=== PATIENT | male | born 1950 | race Caucasian/White ===

== ENCOUNTER 2021-02-04 12:24 | Emergency (ER) | payer MEDICARE, MEDICAID, SELFPAY ==
--- NOTE | ~2021-02-04 | CT_ITS ---
EXAMINATION: CT HEAD WITHOUT CONTRAST CLINICAL INFORMATION: Change in behavior COMPARISON: None. TECHNIQUE: Contiguous axial imaging was performed from the skull base to vertex without intravenous administration of contrast. Coronal and sagittal reformatted images are performed at the CT scanner. [This CT examination was performed using dose optimization techniques as appropriate, variously including the following: *Automated exposure control *Adjustment of mA and/or kV according to patient size (this includes techniques or standardized protocols for targeted exams where dose is matched to indication/reason for exam; i.e. extremities or head) *Use of iterative reconstruction technique] DLP: 716 mGy-cm. FINDINGS: There is no evidence of acute intracranial hemorrhage or territorial infarction. No abnormal mass-effect or midline shift is seen. [place] to white matter differentiation is well preserved. No extra-axial fluid collections are identified. The ventricles are normal in size. There is no abnormal attenuation within the brain parenchyma. There is no osseous abnormality. The mastoid air cells and visualized portions of the paranasal sinuses are well-aerated. CT/CT head/brain wo con IMPRESSION: No acute intracranial pathology.
--- NOTE | ~2021-02-04 | XR_ITS ---
EXAMINATION: XR CHEST CLINICAL INFORMATION: Feels as if he was poisoned COMPARISON: None TECHNIQUE: 2 views of the chest were obtained. FINDINGS: No significant abnormality is noted involving the heart, lungs, mediastinum, bony thorax or soft tissues. XR/XR chest 2V IMPRESSION: Unremarkable examination.
[2021-02-04 12:55] VITALS: BP 101/63; PULSE 70; RESP 18; TEMP 36.7; O2SAT 98; BMI 22.6
[2021-02-04 16:28] VITALS: BP 117/84; PULSE 63; RESP 18; TEMP 36.6; O2SAT 99
--- NOTE | 2021-02-04 16:33 | ED_ITS ---
HPI - Psych General Chief Complaint: Psychiatric Symptoms Stated Complaint: CRISIS Time Seen by Provider: 02/04/21 15:01 Source: patient Mode of arrival: ambulatory Limitations: language barrier (Korean-speaking) History of Present Illness HPI Narrative: 70-year-old male with a past medical history of hypertension, arthritis and asthma presenting to the ED with complaints of increased anxiety and paranoia since January 29, 2021 after attending a birthday republican at his ex son-in-law's house. He reports that he was invited to his ex son-in-law's house for a birthday republican and he accepted the invitation when he arrived there he was eating the food that he was given that he believes everyone else was eating then finally they gave him something to drink and a cup of coffee and shortly after he started feeling weird he said he felt a sensation in his body that he has never felt before. Therefore at that time he decided that he was going to go home. Then his ex son-in-law reported that he would take him home although he did not feel comfortable with anyone driving his car therefore they followed him home and he found this suspicious. He reports that since then he has been having a weird sensation in his body that he cannot explain although he believes he was poisoned with possible rat poisoning. He reports that his ex son-in-law called them again today to go by a car at a dealership and he explained to him that he wanted the patient to go in his own car to his house although the patient did not feel comfortable and he found this suspicious as well therefore he went to his primary care provider. His primary care provider's office he explained to them about his anxiety/paranoia possibly being poisoned therefore he was given medication to relax himself and was sent here for further evaluati on treatment. Patient denies any SI/HI/auditory or visual hallucinations or thoughts of self injury. Denies any drug or alcohol usage. Denies any recent travel or sick contacts. Denies being on any blood thinners. Denies any additional complaints or concerns at this time. complaint: anxiety Onset (ago): day(s) Duration: constant and getting worse History of same: No Relieving factors: none Exacerbating factors: other (When his ex son-in-law calls him) Associated symptoms: denies other symptoms Treatments prior to arrival: other (Was given a p.o. medication at his primary care prior to arrival unsure the name) Related Data Allergies Allergy/AdvReac Type Severity Reaction Status Date / Time No Known Allergies Allergy Unverified 06/26/20 19:05 [No Known Allergies*] Review of Systems Review of Systems: Constitutional : No Fever, No Chills ENT/Mouth : No Ear Pain, No Nasal Congestion, No sore throat Eyes: No Eye Pain, No Swelling, No Redness Cardiovascular : No Chest Pain, No SOB Respiratory : No Cough, No Sputum, No Dyspnea Gastrointestinal : No ingestions, No Nausea, No Vomiting, No Diarrhea, No Hematochezia, No Melena Genitourinary : No Dysuria, No Urinary Frequency, No Hematuria Musculoskeletal : No Myalgias Skin : No Skin Lesions, No rash Neuro : No Weakness, No Numbness, No Paresthesias, No Dizziness, No Headache Psych : + Anxiety/paranoia, No Depression, No SI, No No thoughts of self injury, No HI, No AVH, Heme/Lymph: No Lymphadenopathy Endocrine : No Polyuria, No Polydipsia Yes all other systems are reviewed and are negative [facility] Past Medical History Attestation statement: The following information was validated with the patient. Medical History Arthritis Asthma Hypertension Surgical History No significant past surgical history Social History Social History Advance Directives: Yes Advance Directives Information Provided: Yes Advance Directives on File: No Physical Exam Vital Signs: Vital Signs: Last Vital Signs Temp 97.8 F 02/04/21 16:28 Pulse 63 02/04/21 16:28 Resp 18 02/04/21 16:28 BP 117/84 02/04/21 16:28 Pulse Ox 99 02/04/21 16:28 Body Mass Index 22.6 vital signs have been reviewed as normal and appeared to be correct. Blood pressure normal. Heart rate normal. Respiration rate normal. Temperature normal. Oxygen saturation normal. Appearance: Alert. Oriented X3. No acute distress. Head: Normal external exam. Normocephalic. Atraumatic. No Egan signs noted. No raccoon eyes noted Eyes: PERRLA. EOMI. Conjunctiva and sclera normal. Eyelids normal. ENT: EAC normal. TM's Normal. Pharynx normal. Uvula midline. Moist mucous membranes. No trismus noted. No drooling noted. No muffled voice noted. Neck: Normal inspection. Neck supple. FROM. No adenopathy. Thyroid Normal. No meningeal signs. No neck mass noted. CVS: Normal heart rate and rhythm. Heart sound normal. No murmurs noted. Pulses normal throughout. Respiratory: No respiratory distress. Painless inspiration. Breath sounds normal. No wheezes/rales/rhonchi noted. Chest nontender. No accessory muscle usage noted or decreased air movement noted. Abdomen: Soft and nontender. Bowel sounds normal in all 4 quadrants. No distention noted. No organomegaly noted. No visible injury noted. Back: No CVA tenderness. Full range of motion noted. Skin: Skin warm and dry. Normal skin color. Normal skin turgor. No rashes/lesions/lacerations noted. Extremities: No lower extremity edema. Extremities exhibit normal range of motion. Extremities nontender. Neuro: Oriented X 3. No motor deficit. No sensory deficit. Reflexes normal. Psych: Appearance grossly normal, well-kept, mental status normal, speech and movement normal, speech clear, patient appears very sad and anxious. Is cooperative. Normal thought process. Normal thought content. Normal good insight. Judgment good. Course Course Course Narrative: 17pm - labs pending at this time. - chest x-ray within normal limits no acute processes are noted. - sign out to TARAS Tran pending labs, EKG, CT scan of brain and N/care Team consult. MDM - Psych MDM Narrative Medical decision making narrative: 70-year-old male with a past medical history of hypertension, asthma and arthritis does not have a psychiatric history presenting to the ED with complaints of increased anxiety/paranoia where he believes that his ex son-in-law is trying to poison him. Denies any SI/HI/auditory visualizations or thoughts of self injury. Denies any drug or alcohol usage. Reports he is not on any blood thinners. Denies any recent trauma. - on exam patient is alert and oriented x3. Not in any acute distress. No focal neuro deficits are noted. Lungs clear to auscultation. CV RRR. Abdomen is soft and nontender. Normal steady gait. No self-injury or track donald noted. - Plan: Will obtain labs, chest x-ray, EKG, CT scan of brain then if all within normal limits patient will need to be evaluated by [facility]/care team. Patient understands agrees with this plan. Medical Records Attestation: I reviewed the patient's medical records. Lab Data Attestation: I reviewed the patient's lab results. Imaging Data Chest x-ray: Attestation: I personally reviewed and interpreted this imaging study as follows: Radiologist's impression: FINDINGS: No significant abnormality is noted involving the heart, lungs, mediastinum, bony thorax or soft tissues. XR/XR chest 2V IMPRESSION: Unremarkable examination. Discharge Plan Discharge Clinical Impression: Acute anxiety, Paranoid
[2021-02-04 16:55] LABS: MANUAL DIFF FLAG NO
[2021-02-04 16:56] LABS: Basophils Percent Auto 0.5 % (0-2); Eosinophils Absolute Auto 0.2 X10*3/uL (0.0-0.4); Eosinophils Percent Auto 3.4 % (0-4); Hemoglobin 14.1 g/dl (14.0-18.0); Lymphocytes Absolute Auto 2.6 X10*3/uL (1.2-4.9); Lymphocytes Percent Auto 40.6 % (20-40); Mean Corpuscular HGB Conc 33.6 g/dl (31.0-36.0); Mean Corpuscular Hemoglobin 30.2 pg (27.0-33.0); Mean Corpuscular Volume 89.9 fL (80-98); Mean Platelet Volume 9.5 fL (9.4-12.4); Monocytes Absolute Auto 0.6 X10*3/uL (0.1-1.2); Monocytes Percent Auto 9.5 % (2-11); Platelet Count 272 X10*3/uL (160-400); Red Blood Count 4.67 X10*6/uL (4.60-5.80); Red Cell Distribution Width 13.8 % (11.0-16.0); White Blood Count 6.5 X10*3/uL (4.8-10.8)
--- NOTE | 2021-02-04 16:57 | ECG_ITS ---
Test Reason : HYPERTENSION Blood Pressure : / mmHG Vent. Rate : 062 BPM Atrial Rate : 062 BPM P-R Int : 130 ms QRS Dur : 100 ms QT Int : 416 ms P-R-T Axes : 002 061 039 degrees QTc Int : 422 ms Normal sinus rhythm Normal ECG When compared to the previous EKG of No significant changes seen Referred By: Alice Wisdom Electronically Signed By:DANIEL GODOY MD
[2021-02-04 17:03] LABS: INTERNATIONAL NORM RATIO 1.1 (0.9-1.1); Prothrombin Time 12.7 SEC (10.8-13.0)
[2021-02-04 17:06] LABS: Glucose Urine UA NEG (NEG); Leukocyte Esterase Urine NEG (NEG); Nitrite Urine NEG (NEG); PH 6.5 (5.0-8.0); Specific Gravity - Urine 1.015 (1.005-1.025); Urine Blood NEG (NEG); Urine Ketones NEG (NEG); Urine Protein NEG (NEG-TRACE)
--- NOTE | 2021-02-04 17:14 | PC.NURSE ---
labs drawn, urine obtained
[2021-02-04 17:16] LABS: Appearance Urine CLEAR; Color Urine YELLOW; Ethanol < 10 mg/dL
[2021-02-04 17:20] LABS: Amphetamine Screen Urine Not Detected (Not Detect); Barbiturates, Urine Not Detected (Not Detect); Benzodiazepines Screen Urine Not Detected (Not Detect); Cannabinoid Screen Urine Not Detected (Not Detect); Cocaine Screen Urine Not Detected (Not Detect); Opiate Screen Urine Not Detected (Not Detect); Phencyclidine Screen Urine Not Detected (Not Detect)
[2021-02-04 17:23] LABS: Acetaminophen LAB < 1 mcg/mL (<30); Alanine Aminotransferase 13 U/L (0-40); Albumin Level 4.3 g/dL (3.5-5.0); Alkaline Phosphatase 80 U/L (39-117); Anion Gap 13 (12-20); Aspartate Amino Transferase 16 U/L (5-37); Bilirubin Direct 0.2 mg/dL (0.0-0.5); Bilirubin Total 0.7 mg/dL (0.0-1.0); Blood Urea Nitrogen 14 mg/dL (9-16); Carbon Dioxide 25 mmol/L (22-29); Chloride 107 mmol/L (96-108); Creatinine Clr Calc Pharmacy 63.2; Estimated Glomerular Filt Rate > 60; Glucose Random 90 mg/dL (60-115); Lipase 32 U/L (8-78); Magnesium 2.5 mg/dL (1.6-2.6); Potassium 3.6 mmol/L (3.3-5.1); Salicylate < 5.0 mg/dL (15-30); Sodium 141 mmol/L (135-145); Total Protein 7.5 g/dL (6.5-8.0)
[2021-02-04 17:50] LABS: Troponin-I High Sensitivity 6.1 ng/L (<3.5-35.0)
--- NOTE | 2021-02-04 18:25 | PC.NURSE ---
Report recieved. PT ambulated to pod with steady gait, denies complaints, pt cooperative with change manager, waiting to be seen by [facility].
[2021-02-04 19:51] LABS: COVID-19 Test Negative (Negative)
--- NOTE | 2021-02-04 20:26 | PC.NURSE ---
[facility] faxed/called/spoke with Peggycy/confirmed receipt of referral, No ETA
[2021-02-04 20:48] VITALS: BP 112/74; PULSE 76; RESP 18; TEMP 36.5; O2SAT 97
[2021-02-05 01:07] VITALS: BP 125/77; PULSE 70; RESP 17; TEMP 36.8; O2SAT 99
--- NOTE | 2021-02-05 01:36 | PC.NURSE ---
[facility] at bedside. patient seems engaged.
== END 2021-02-05 02:19 | disposition home or self-care (01) ==
PROVIDERS: Nurse Practitioner Family; Physician Assistant Medical; Emergency Provider Emergency Medicine Emergency Medical Services
DX: F22 Delusional disorders (principal); F33.1 Major depressive disorder, recurrent, moderate; F41.1 Generalized anxiety disorder; F43.0 Acute stress reaction; I10 Essential (primary) hypertension; Z20.822 Contact with and (suspected) exposure to COVID-19; Z79.899 Other long term (current) drug therapy
CPT/HCPCS: 36415; 70450; 71046; 80053; 80076; 80143; 80179; 80307; 80320; 81003; 82248; 83690; 83735; 84484; 85025; 85610; 87635; 93005; 99285

== ENCOUNTER → 2022-10-08 14:06 | Outpatient (BNVA) | payer MEDICARE, MEDICAID, SELFPAY | PROVIDERS: PCP Internal Medicine; Visit Provider Urology | DX: Z09 Encounter for follow-up examination after completed treatment for conditions other than malignant neoplasm (principal); N40.0 Benign prostatic hyperplasia without lower urinary tract symptoms | CPT/HCPCS: 99202 ==

== ENCOUNTER 2025-07-04 13:44 | Outpatient (REF) | payer MEDICARE, MEDICAID, SELFPAY ==
--- OUTSIDE RECORDS SUMMARY | 2025-07-04 13:00 | XMS_ITS | Encounter Summary ---
Author Organization [employer] Address [address] [place] [address] Care Team Providers Care Center Human Resources Manager Name Role Phone Colin Ellsworth MD Primary Care Prov ider Encounter Details Date Type Department Care Team ([facility] st Contact Info) Description 07/04/2025 1:00 PM EDT Office Visit [facility] [address], [place] [phone] Colin Ellsworth MD [address], [place] [phone] Primary hypertension (Primary Dx); Mixed hyperlipidemia; Screening for colon cancer Social History Tobacco Use Types Packs/Day Years Used Date Smoking Tobacco: Never Passive Smoke Exposure: Never Smokeless Tobacco: Never Alcohol Use Standard Drinks/Week Comments Never 0 (1 standard drink = 0.6 oz pur e alcohol) Depression Answer Date Recorded Patient Health Questionnaire-9 Score 17 05/14/2024 Patient Health Questionnaire-9 Score 17 05/14/2024 Last PHQ-9: Questionnaire Data Not on file 0 05/14/2024 Housing Stability Answer Date Recorded What is your housing situation today? I have pam jaimes 05/14/[address] you li ve. Do you have problems with any of the following? None of the above 05/14/2024 Food Insecurity Answer Date Recorded Within the past 12 months, y ou worried that your food would run out before you got money to buy more: Never True 05/14/2024 Within the past 12 months,th e food you bought just didn't last and you didn't have enough money to get more: Never True 02/2024 Transportation Answer Date Recorded In the past 12 months, has l ack of transportation kept you from medical appts, meetings, work or from getting things needed for daily living? No 05/14/2024 Utilities Answer Date Recorded In the past 12 months, has t he electric, gas, oil or water company threatened to shut off services in your home? No 05/14/2024 Depression Answer Date Recorded Patient Health Questionnaire-2 Score 6 05/14/2024 Internet Access Answer Date Recorded Internet Access Q1 No 06/11/2024 Internet Access Q2 I do not want or need it 11/2023 Sex and Gender Information Value Date Recorded Sex Assigned at Male 08/09/2022 10:29 AM EDT Legal Sex Male 10:29 AM EDT Gender Identity Male 08/09/2022 10:29 AM EDT Sexual Orientation Straight 08/09/2022 10 :29 AM EDT documented as of this encounter Last Filed Vital Signs Vital Sign Reading Time Taken Comments Blood Pressure 134/90 07/04/2025 1:09 PM EDT Pulse 68 07/04/2025 1:09 PM EDT Temperature 37.1 C (98.7 F) 07/04/2025 1:09 PM EDT Respiratory Rate 16 07/04/2025 1:09 PM EDT Oxygen Saturation - - Inhaled Oxygen Concentration - - Weight 70.6 kg (155 lb 9.6 oz) 07/04/2025 1:09 P M EDT Height 180.3 cm (5' 11 ) 07/04/2025 1:09 PM EDT Body Mass Index 21.7 07/04/2025 1:09 PM EDT documented in this encounter Progress Notes * Colin Campos MD - 07/04/2025 1:00 PM EDT Subjective Patient ID: Tacos Miranda is a 75 y.o. male who presents for No chief complaint on file.. Hypertension This is a chronic problem. The problem is controlled. Pertinent negatives include no chest pain, headaches, palpitations, peripheral edema or shortness of breath. Review of Systems Respiratory: Negative for shortness of breath. Cardiovascular: Negative for chest pain and palpitations. Neurological: Negative for headaches. Objective Physical Exam Constitutional: Appearance: Normal appearance. Cardiovascular: Rate and Rhythm: Normal rate. Heart sounds: No murmur heard. Pulmonary: Effort: Pulmonary effort is normal. No respiratory distress. Breath sounds: No stridor. No wheezing or rhonchi. Abdominal: General: Abdomen is flat. There is no distension. Palpations: There is no mass. Tenderness: There is no abdominal tenderness. Hernia: No hernia is present. Neurological: General: No focal deficit present. Mental Status: He is alert and oriented to person, place, and time. Psychiatric: Mood and Affect: Mood normal. Behavior: Behavior normal. Assessment/Plan Problem List Items Addressed This Visit Primary hypertension - Primary Above target, but he has not been taking his medications, reviewed importance of medication adherence, will order new labs and follow up in 1 month Relevant Medications amLODIPine (Norvasc) 5 MG tablet Other Relevant Orders CBC auto differential Comprehensive Metabolic Panel Lipid Panel, Standard TSH W/Reflex to FT4 PSA, Total With Reflex to PSA, Free Mixed hyperlipidemia On statin therapy, patient has not been taking them, risk vs benefits discussed, will order new labs for guidance of therapy Relevant Medications atorvastatin (Lipitor) 40 MG tablet Screening for colon cancer Relevant Orders Cologuard?? colon cancer screening documented in this encounter Miscellaneous Notes * Assessment & Plan Note - Colin Campos MD - 07/04/2025 1:29 PM EDTAssociated Problem(s): Primary hypertension Above target, but he has not been taking his medications, reviewed importance of medication adherence, will order new labs and follow up in 1 month * Assessment & Plan Note - Colin Campos MD - 07/04/2025 1:28 PM EDTAssociated Problem(s): Mixed hyperlipidemia On statin therapy, patient has not been taking them, risk vs benefits discussed, will order new labs for guidance of therapy documented in this encounter Plan of Treatment Scheduled Orders Name Type Priority Associated Diagnoses Orde r Schedule Cologuard colon cancer screening Lab Routine Screening for colon cancer Ordered: 07/04/2025 documented as of this encounter Procedures Procedure Name Priority Date/Time Associated Diagnosis Comments TSH W/REFLEX TO FT4 Routine 07/04/2025 1 :45 PM EDT Primary hypertension PSA, TOTAL WITH REFLEX TO PSA, FREE Routine 07/04/2025 1:45 PM EDT Primary hypertension CBC WITH AUTO DIFFERENTIAL Routine 07/04/2025 1:45 PM EDT Primary hypertension LIPID PANEL, STANDARD Routine 07/04/2025 1:45 PM EDT Primary hypertension COMPREHENSIVE METABOLIC PANEL Routine 07/04/2025 1:45 PM EDT Primary hypertension documented in this encounter Results * (ABNORMAL) PSA, Total With Reflex to PSA, Free (07/04/2025 1:45 PM EDT) PSA,Total (Free>4and<10) 5.41(H) 0.00 - 4.00 ng/mL [facility] Comment:PSA methodology: Richelle Yo i ChemiluminescentMicroparticle Immunoassay (CMIA) 07/04/2025 1:45 PM EDT 07/04/2025 2:42 PM EDT us Colin Campos MD LAB BLOOD ORDERABL ES Final Result [facility] [address] [place] [phone] * TSH W/Reflex to FT4 (07/04/2025 1:45 PM EDT) TSH reflex Free T4 3.83 0.32 - 4.0 uIU/mL [facility] Blood Venous blood specimen / Unknown 07/04/2025 1:45 PM EDT 07/04/2025 2:42 PM EDT Colin Campos MD LAB BLOOD ORDERABL ES Final Result Performing Organization Address [facility]/ZIP Co de Phone Number [facility] [address] [place] [phone] * (ABNORMAL) Lipid Panel, Standard (07/04/2025 1:45 PM EDT) Triglycerides 90 <150 mg/dL [facility] Comment:Desirable Triglyceri de: less than 150 mg/dLBorderline High Triglyceride 150-199 mg/dLHigh Triglyceride: 200-499 mg/dLVery High Triglyceride: greater than or equal to 5OO mg/dL Cholesterol 193 <200 mg/dL [facility] Comment:Desirable Cholestero l: less than 200 mg/dLBorderline High Cholesterol: 200-239 mg/dLHigh Cholesterol: greater than 239 mg/dL LDL Cholesterol Calculated 128(H) <100 mg/dL [facility] Comment:Desirable LDL: less than 100 mg/dLNear Optimal/Above Optimal LDL: 110- 129 mg/dLBorderline High LDL: 130-159 mg/dLHigh LDL: 160-189 mg/dLVery High LDL: greater than or equal to 190 mg/dL HDL Cholesterol 47 >40 mg/dL [facility] Comment:Desirable HDL: great er than 40 mg/dL Note: This HDL assay may give artificially low results in patients with liver disease. Blood Venous blood specimen / Unknown 07/04/2025 1:45 PM EDT 07/04/2025 2:42 PM EDT us Colin Campos MD LAB BLOOD ORDERABL ES Final Result Performing Organization Address City/[facility]/ZIP Co de Phone Number [facility] [address] [place] [phone] * (ABNORMAL) Comprehensive Metabolic Panel (07/04/2025 1:45 PM EDT) Sodium 142 135 - 145 mmol/L [facility] Potassium 3.7 3.3 - 5.1 mmol/L [facility] Chloride 109(H) 96 - 108 mmol/L [facility] Carbon Dioxide 28 22 - 29 mmol/L [facility] Anion Gap 9(L) 12 - 20 [facility] Urea Nitrogen (BUN) 15 9 - 16 mg/dL [facility] Creatinine, Serum 1.15 0.5 - 1.4 mg/dL [facility] Estimated Glomerular Filt Rate >60 [facility] Comment:Chronic Kidney Disea se: Estimated GFR < 60 mL/min/1.93m5Izfdsc Kidney Disease: Estimated GFR < 15 mL/min/1.73m2 Glucose 81 60 - 115 mg/dL [facility] Calcium 8.5 8.4 - 10.2 mg/dL [facility] Bilirubin, Total 0.5 0.0 - 1.0 mg/dL [facility] Aspartate Amino Transferase 22 5 - 37 U/L [facility] Alanine Aminotransferase 16 0 - 40 U/L [facility] Total Protein 7.1 6.5 - 8.0 g/dL [facility] Albumin Level 4.1 3.5 - 5.0 g/dL [facility] Alkaline Phosphatase 61 39 - 117 U/L [facility] Blood Venous blood specimen / Unknown 07/04/2025 1:45 PM EDT 07/04/2025 2:42 PM EDT us Colin Campos MD LAB BLOOD ORDERABL ES Final Result [facility] [address] [place] [phone] * (ABNORMAL) CBC auto differential (07/04/2025 1:45 PM EDT) White Blood Count 6.0 4.8 - 10.8 X10*3/uL [facility] Red Blood Count 4.34(L) 4.60 - 5.80 X10*6/uL [facility] Hemoglobin 12.6(L) 14.0 - 18.0 g/dl [facility] Hematocrit 38.3(L) 42.0 - 52.0 % [facility] Mean Corpuscular Volume 88.2 80.0 - 98.0 fL [facility] Mean Corpuscular Hemoglobin 29.0 27.0 - 33.0 pg [facility] Mean Corpuscular HGB Conc 32.9 31.0 - 36.0 g/dl [facility] Red Cell Distribution Width 15.0 11.0 - 16.0 % [facility] Platelet Count 266 160 - 400 X10*3/uL [facility] Mean Platelet Volume 9.9 9.4 - 12.4 fL [facility] Neutrophils Percent Auto 51.5 45 - 73 % [facility] Imm Gran Pct Auto 0.2 0.0 - 0.4 % [facility] Lymphocytes Percent Auto 35.7 20 - 40 % [facility] Monocytes Percent Auto 8.1 2 - 11 % [facility] Eosinophils Percent Auto 3.7 0 - 4 % [facility] Basophils Percent Auto 0.8 0 - 2 % [facility] NRBC Pct Auto 0.0 0.0 - 0.2 /100WBC [facility] Neutrophils Absolute Auto 3.1 2.0 - 8.3 x10*3/uL [facility] Imm Gran Abs Auto 0.01 0.00 - 0.03 X10*3/uL [facility] Lymphocytes Absolute Auto 2.2 1.2 - 4.9 X10*3/uL [facility] Monocytes Absolute Auto 0.5 0.1 - 1.2 X10*3/uL [facility] Eosinophils Absolute Auto 0.2 0.0 - 0.4 X10*3/uL [facility] Basophils Absolute Auto 0.1 0.0 - 0.2 X10*3/uL [facility] NRBC Abs Auto 0.000 0.0 - 0.012 X10*3/uL [facility] Blood Venous blood specimen / Unknown 07/04/2025 1:45 PM EDT 07/04/2025 2:37 PM EDT us Colin Campos MD LAB BLOOD ORDERABL ES Final Result [facility] [address] [place] [phone] documented in this encounter Visit Diagnoses Diagnosis Primary hypertension- Primary Unspecified essential hypertension Mixed hyperlipidemia Screening for colon cancer Special screening for malignant neoplasms, colon documented in this encounter Additional Health Concerns Assessment Noted Time PHQ-9 Depression Total Score: 17 024 11:41 AM EDT documented as of this encounter Care Teams Center Human Resources Manager Relationship Specialty Start Date End Date Colin Ellsworth MD [address] [place] [phone] PCP - General Internal Medicine 02/12/20 documented as of this encounter
[2025-07-04 14:42] LABS: MANUAL DIFF FLAG NO
[2025-07-04 14:53] LABS: Hematocrit 38.3 % (42.0-52.0); Hemoglobin 12.6 g/dl (14.0-18.0); Imm Gran Abs Auto 0.01 X10*3/uL (0.00-0.03); Imm Gran Pct Auto 0.2 % (0.0-0.4); Lymphocytes Absolute Auto 2.2 X10*3/uL (1.2-4.9); Mean Corpuscular HGB Conc 32.9 g/dl (31.0-36.0); Mean Corpuscular Hemoglobin 29.0 pg (27.0-33.0); Mean Corpuscular Volume 88.2 fL (80.0-98.0); NRBC Abs Auto 0.000 X10*3/uL (0.0-0.012); NRBC Pct Auto 0.0 /100WBC (0.0-0.2); Platelet Count 266 X10*3/uL (160-400); Red Blood Count 4.34 X10*6/uL (4.60-5.80); White Blood Count 6.0 X10*3/uL (4.8-10.8)
[2025-07-04 15:32] LABS: Alanine Aminotransferase 16 U/L (0-40); Albumin Level 4.1 g/dL (3.5-5.0); Alkaline Phosphatase 61 U/L (39-117); Anion Gap 9 (12-20); Aspartate Amino Transferase 22 U/L (5-37); Blood Urea Nitrogen 15 mg/dL (9-16); Calcium 8.5 mg/dL (8.4-10.2); Carbon Dioxide 28 mmol/L (22-29); Chloride 109 mmol/L (96-108); Cholesterol 193 mg/dL (<200); Estimated Glomerular Filt Rate > 60; HDL Cholesterol 47 mg/dL (>40); Potassium 3.7 mmol/L (3.3-5.1); Sodium 142 mmol/L (135-145); Total Protein 7.1 g/dL (6.5-8.0); Triglycerides 90 mg/dL (<150)
[2025-07-04 15:48] LABS: PSA,Total (Free>4and<10) 5.41 ng/mL (0.00-4.00)
--- OUTSIDE RECORDS SUMMARY | 2025-07-04 18:16 | XMS_ITS | Clinical Summary ---
Author Organization [employer] Address [address] [facility] 7t [place] [address] Care Team Providers Care Airplane Pilot Commercial Name Role Phone Colin Ellsworth MD Primary Care Prov ider Allergies Active Allergy Reactions Criticality Noted Date Comments Pollen Extract Rash Low 03/27/2024 Medications * This document contains information received from the source organization and may not represent a complete record from that organization. amLODIPine (Norvasc) 5 MG tablet Take 1 tablet (5 mg) by mouth Once per day. for blood pressure 90 tablet 3 07/04/20 25 026 Active atorvastatin (Lipitor) 40 MG tabletIndications :Mixed hyperlipidemia Take 1 tablet (40 mg) by mouth Once per day. 90 tablet 3 07/04/20 25 026 Active Blood Pressure kit 1 kit Once per day. 1 kit 07/04/20 25 Active cetirizine (ZyrTEC) 10 MG tablet Take 1 tablet (10 mg) by mouth in the morning. 90 tablet 1 01/15/20 23 025 Discontinued amLODIPine (Norvasc) 5 MG tablet Take 1 tablet (5 mg) by mouth Once per day. for blood pressure 90 tablet 3 05/14/20 24 025 Discontinued(R eorder (will not trigger notification to Pharmacy)) atorvastatin (Lipitor) 40 MG tabletIndications :Mixed hyperlipidemia Take 1 tablet (40 mg) by mouth Once per day. 90 tablet 3 05/14/20 24 025 Discontinued(R eorder (will not trigger notification to Pharmacy)) QUEtiapine (SEROquel) 50 MG tablet Take 1 tablet (50 mg) by mouth 2 times daily. 180 tablet 1 05/14/20 24 025 Discontinued Active Problems Problem Noted Date Diagnosed Date Episode of recurrent major depressive disorder 0 05/14/2024 Assessment & Plan (05/14/2024 12:02 PM EDT): PROGRESS NOTE: ID: Tacos is a 74 y.o. straight-identified cis-male with previous documented hx of Depression self reported history of Schizoaffective Disorder and Alcohol Use Disorder services including OP Psychotherapy psychopharmacology who presents for Depression and Anxiety. During IBH Consult Tacos presenting with depressed mood, loss of interests/pleasure , changes in sleep difficulty falling asleep, change in appetite or weight reduce appetite, psychomotor retardation, trouble concentrating, fatigue/loss of energy, worthlessness , excessive worry/anxiety, restless/keyed up/On edge, easily fatigued, difficulty concentrating/Mind going blank , irritability, muscle tension, and sleep disturbance difficulty falling asleep, Flight of ideas and Excessive goal directed activity, and Unusual thoughts and Other: paranoia and auditory hallucinations, Tacos verbalized Hx of Alcoholisms, but has been sober since 1996; for a period of 18+ mo, for all symptoms in the context of adjusting to elderly live, depending of others, lack of OP services. . PLAN: New/Additional Services needed PCP management Off-site services for Behavioral Health Integration Plan External OP therapy referral and OP psychiatry Referral Patient Self Plan Patient to reach out to [facility] team as needed, Comply with medication , and Patient to engage in OP therapy MCKENNA (generalized anxiety disorder) 05/14/2024 Screening for colon cancer 01/14/2023 Assessment & Plan (05/14/2024 9:47 AM EDT): Cologuard sent Assessment & Plan (01/14/2023 9:23 AM EDT): Will send cologard Seasonal allergies 01/14/2023 Assessment & Plan (01/14/2023 9:25 AM EDT): Will send cetirizine, avoid prolongued exposure to dust/pollen Primary hypertension 10/08/2022 Assessment & Plan (07/04/2025 1:29 PM EDT): Above target, but he has not been taking his medications, reviewed importance of medication adherence, will order new labs and follow up in 1 month Assessment & Plan (05/14/2024 9:46 AM EDT): Uncontrolled, patient refers has not been taking his medications, will renew, keep bp log bp target <140/90 Assessment & Plan (01/14/2023 9:21 AM EDT): Controlled, reinforced low sodium diet and exercise as tolerated, continue amlodipine, bp target<140/90 Assessment & Plan (10/08/2022 9:07 AM EST): Controlled, patient refers maintains below 140/90, he is on amlodipine, he is physically active, no chest pain/shortness of breath, will order new bmp for follow up. Mixed hyperlipidemia 10/08/2022 Assessment & Plan (07/04/2025 1:28 PM EDT): On statin therapy, patient has not been taking them, risk vs benefits discussed, will order new labs for guidance of therapy Assessment & Plan (05/14/2024 9:47 AM EDT): Not taking atorvastatin, renewed medication, discussed importance of med adherance Assessment & Plan (10/08/2022 9:08 AM EST): Will order new hepatic/lipid panel for evaluation, he is on atorvastatin Elevated PSA 10/08/2022 Assessment & Plan (05/14/2024 9:46 AM EDT): Will send new psa for follow up, currently asymptomatic Assessment & Plan (10/08/2022 9:08 AM EST): Has scheduled appointment today at [facility], will follow recomendations Encounters Date Type Department Care Team Description 07/04/2025 1:00 PM EDT Office Visit [facility] MED & P[facility]S [address] [place] [address] Colin Ellsworth MD Primary hypertension (Primary Dx); Mixed hyperlipidemia; Screening for colon cancer 07/04/2025 Travel 07/03/2025 Telephone [facility] [address] [place], [place] [phone] Colin Ellsworth MD chart prep 07/03/2025 Telephone [facility] MED & P[facility] [address] [place], [place] [phone] Colin Ellsworth MD 06/27/2025 Patient Outreach [facility] [address] [place] [address] Colin Ellsworth MD Pre-visit Planning ((Unable to reach for PVP screening, LVM) to be completed in office ) from Last 3 Months Immunizations Immunization Administration Dates Next Due Influenza High-dose Quadriva lent Preservative Free 08/29/2023,08/06/2022 Influenza Injectable Quadriv alant Preservative Free IIV4 MDCK 08/27/2021,08/15/2020 Influenza injectable quadriv alent IIV4 with preservative 11/12/2019,09/12/2017,08/25/2016 Influenza injectable quadriv alent preservative free 12/15/2018 Influenza, IIV3, injectable 07/06/2012, 1 Influenza, intradermal, quad rivalent, preservative free 07/06/2012,08/05/2011 Pneumococcal Conjugate PCV 13 03/30/2016 Pneumococcal Polysaccharide PPSV23 04/29/2017 RSV Bivalent 08/29/2023 Tdap 08/25/2016 Zoster, Recombinant 08/15/2020,12/05/2019 Zoster, live 01/04/2017 Social History Tobacco Use Types Packs/Day Years Used Date Smoking Tobacco: Never Passive Smoke Exposure: Never Smokeless Tobacco: Never Tobacco Cessation:Counseling Given: Not Answered Alcohol Use Standard Drinks/Week Comments Never 0 [...] Orientation Straight 08/09/2022 10 :29 AM EDT Last Filed Vital Signs Vital Sign Reading Time Taken Comments Blood Pressure 134/90 07/04/2025 1:09 PM EDT Pulse 68 07/04/2025 1:09 PM EDT Temperature 37.1 C (98.7 F) 07/04/2025 1:09 PM EDT Respiratory Rate 16 07/04/2025 1:09 PM EDT Oxygen Saturation 98% 05/14/2024 9:18 AM EDT Inhaled Oxygen Concentration - - Weight 70.6 kg (155 lb 9.6 oz) 07/04/2025 1:09 P M EDT Height 180.3 cm (5' 11 ) 07/04/2025 1:09 PM EDT Body Mass Index 21.7 07/04/2025 1:09 PM EDT Plan of Treatment Health Maintenance Due Date Last Done Comments CT Colonography 1950 Colonoscopy 1950 Colorectal Cancer Screening 1950 FIT DNA/Cologuard 1950 FIT 1950 FOBT 1950 Sigmoidoscopy 1950 Alcohol/Substance Use Screening 1962 Dental Oral Exam 08/04/2024 02/02/2024, 09/2023, 12/07/2019 Depression Monitoring 11/14/2024 05/14/2024, 024 SDOH Screening 05/14/2025 05/14/2024 COVID-19 Vaccine ( season) 2025 08/06/2022, 01/19/2021, 12/22/2020 Influenza Vaccine (#1) 2025 , 08/06/2022, 08/27/2021, Additional history exists Dental Prophylaxis 06/24/2025 12/21/2024, 02/02/2024 Dental X-Ray: Bitewings 12/22/2025 12/22/19, 09/20/2023, 09/08/2023, Additional history exists Tobacco Screening 03/01/2026 03/01/2025 DTaP/Tdap/Td Vaccines (2 - Td or Tdap) 08/25/2026 08/25/2016 Dental X-Ray: Full Mouth 09/21/2026 09/20/2023, 11/11 Lipid Panel 10/08/2027 07/04/2025, 09/11, 05/17/2022 Pneumococcal Vaccine: 50+ Years Completed 04/29/2017, 03/30/2016 Hepatitis C Screening Completed 12/05/2019 Zoster Vaccines Completed 08/15/2020, 11/11, 01/04/2017 RSV Patients and Patients Aged 60 years or older Completed 08/29/2023 HIB Vaccines Aged Out No longer eligi ble based on patient's age to complete this topic HPV Vaccines Aged Out No longer eligi ble based on patient's age to complete this topic Hepatitis A Vaccines Aged Out No long er eligible based on patient's age to complete this topic Hepatitis B Vaccines Aged Out No long er eligible based on patient's age to complete this topic IPV Vaccines Aged Out No longer eligi ble based on patient's age to complete this topic Meningococcal B Vaccine Aged Out No l onger eligible based on patient's age to complete this topic Meningococcal Vaccine Aged Out No katherine jesse eligible based on patient's age to complete this topic RSV under 20 months Aged Out No longe r eligible based on patient's age to complete this topic Rotavirus Vaccines Aged Out No longer eligible based on patient's age to complete this topic Procedures Procedure Name Priority Date/Time Associated Diagnosis Comments PSA, TOTAL WITH REFLEX TO PSA, FREE Routine 07/04/2025 1:45 PM EDT Primary hypertension TSH W/REFLEX TO FT4 Routine 07/04/2025 1 :45 PM EDT Primary hypertension LIPID PANEL, STANDARD Routine 07/04/2025 1:45 PM EDT Primary hypertension COMPREHENSIVE METABOLIC PANEL Routine 07/04/2025 1:45 PM EDT Primary hypertension CBC WITH AUTO DIFFERENTIAL Routine 07/04/2025 1:45 PM EDT Primary hypertension Full PROPHYLAXIS - ADULT Routine 12/21/2024 11:00 AM EDT BITEWINGS - 4 RADIOGRAPHIC IMAGES Routine 12/21/2024 11:00 AM EDT PERIODIC ORAL EVALUATION - ESTABLISHED PATIENT Routine 02/02/2024 11:00 AM EDT INTRAORAL - COMPLETE SERIES OF RADIOGRAPHIC IMAGES Routine 09/20/2023 8:00 AM EST ZZZ HISTORICAL HEPATITIS C ANTIBODY RFLX Routine 12/05/2019 8:41 AM EST from Last 3 Months or Most Recently Relevant to Health Maintenance Results * TSH W/Reflex to FT4 (07/04/2025 1:45 PM EDT) TSH reflex Free T4 3.83 0.32 - 4.0 uIU/mL [facility] Blood Venous blood specimen / Unknown 07/04/2025 1:45 PM EDT 07/04/2025 2:42 PM EDT Colin Campos MD LAB BLOOD ORDERABL ES Final Result Performing Organization Address [facility]/ZIP Co de Phone Number [facility] [address], [place] [phone] * (ABNORMAL) PSA, Total With Reflex to PSA, Free (07/04/2025 1:45 PM EDT) Pathologist [facility] PSA,Total (Free>4and<10) 5.41(H) 0.00 - 4.00 ng/mL [facility] Comment:PSA methodology: Richelle Yo i ChemiluminescentMicroparticle Immunoassay (CMIA) 07/04/2025 1:45 PM EDT 07/04/2025 2:42 PM EDT Colin Campos MD LAB BLOOD ORDERABL ES Final Result Performing Organization Address [facility] Co de Phone Number [facility] [address] [place] [phone] * (ABNORMAL) CBC auto differential (07/04/2025 1:45 PM EDT) [facility] White Blood Count 6.0 4.8 - 10.8 X10*3/uL [facility] Red Blood Count 4.34(L) 4.60 - 5.80 X10*6/uL [facility] Hemoglobin 12.6(L) 14.0 - 18.0 g/dl [facility] Hematocrit 38.3(L) 42.0 - 52.0 % [facility] Mean Corpuscular Volume 88.2 80.0 - 98.0 fL [facility] Mean Corpuscular Hemoglobin 29.0 27.0 - 33.0 pg [facility] Mean Corpuscular HGB Conc 32.9 31.0 - 36.0 g/dl [facility] Red Cell Distribution Width 15.0 11.0 - 16.0 % [facility] Platelet Count 266 160 - 400 X10*3/uL [facility] Mean Platelet Volume 9.9 9.4 - 12.4 fL [facility] Neutrophils Percent Auto 51.5 45 - 73 % [facility] Imm Gran Pct Auto 0.2 0.0 - 0.4 % [facility] Lymphocytes Percent Auto 35.7 20 - 40 % [facility] Monocytes Percent Auto 8.1 2 - 11 % [facility] Eosinophils Percent Auto 3.7 0 - 4 % [facility] Basophils Percent Auto 0.8 0 - 2 % [facility] NRBC Pct Auto 0.0 0.0 - 0.2 /100WBC [facility] Neutrophils Absolute Auto 3.1 2.0 - 8.3 x10*3/uL [facility] Imm Gran Abs Auto 0.01 0.00 - 0.03 X10*3/uL [facility] Lymphocytes Absolute Auto 2.2 1.2 - 4.9 X10*3/uL [facility] Monocytes Absolute Auto 0.5 0.1 - 1.2 X10*3/uL [facility] Eosinophils Absolute Auto 0.2 0.0 - 0.4 X10*3/uL [facility] Basophils Absolute Auto 0.1 0.0 - 0.2 X10*3/uL [facility] NRBC Abs Auto 0.000 0.0 - 0.012 X10*3/uL [facility] Blood Venous blood specimen / Unknown 07/04/2025 1:45 PM EDT 07/04/2025 2:37 PM EDT us Colin Campos MD LAB BLOOD ORDERABL ES Final Result [facility] [address] [place] [phone] * (ABNORMAL) Lipid Panel, Standard (07/04/2025 1:45 PM EDT) Triglycerides 90 <150 mg/dL [facility] Comment:Desirable Triglyceri de: less than 150 mg/dLBorderline High Triglyceride 150-199 mg/dLHigh Triglyceride: 200-499 mg/dLVery High Triglyceride: greater than or equal to 5OO mg/dL Cholesterol 193 <200 mg/dL [facility] Comment:Desirable Cholestero l: less than 200 mg/dLBorderline High Cholesterol: 200-239 mg/dLHigh Cholesterol: greater than 239 mg/dL LDL Cholesterol Calculated 128(H) <100 mg/dL [facility] Comment:Desirable LDL: less than 100 mg/dLNear Optimal/Above Optimal LDL: 110- 129 mg/dLBorderline High LDL: 130-159 mg/dLHigh LDL: 160-189 mg/dLVery High LDL: greater than or equal to 190 mg/dL HDL Cholesterol 47 >40 mg/dL [facility] Comment:Desirable HDL: great er than 40 mg/dL Note: This HDL assay may give artificially low results in patients with liver disease. Blood Venous blood specimen / Unknown 07/04/2025 1:45 PM EDT 07/04/2025 2:42 PM EDT Colin Campos MD LAB BLOOD ORDERABL ES Final Result [facility] [address], [place] [phone] * (ABNORMAL) Comprehensive Metabolic Panel (07/04/2025 1:45 PM EDT) Sodium 142 135 - 145 mmol/L [facility] Potassium 3.7 3.3 - 5.1 mmol/L [facility] Chloride 109(H) 96 - 108 mmol/L [facility] Carbon Dioxide 28 22 - 29 mmol/L [facility] Anion Gap 9(L) 12 - 20 [facility] Urea Nitrogen (BUN) 15 9 - 16 mg/dL [facility] Creatinine, Serum 1.15 0.5 - 1.4 mg/dL [facility] Estimated Glomerular Filt Rate >60 [facility] Comment:Chronic Kidney Disea se: Estimated GFR < 60 mL/min/[id number] Kidney Disease: Estimated GFR < 15 mL/min/1.73m2 Glucose 81 60 - 115 mg/dL [facility] Calcium 8.5 8.4 - 10.2 mg/dL [facility] Bilirubin, Total 0.5 0.0 - 1.0 mg/dL [facility] Aspartate Amino Transferase 22 5 - 37 U/L [facility] Alanine Aminotransferase 16 0 - 40 U/L [facility] Total Protein 7.1 6.5 - 8.0 g/dL [facility] Albumin Level 4.1 3.5 - 5.0 g/dL [facility] Alkaline Phosphatase 61 39 - 117 U/L [facility] Blood Venous blood specimen / Unknown 07/04/2025 1:45 PM EDT 07/04/2025 2:42 PM EDT Colin Campos MD LAB BLOOD ORDERABL ES Final Result [facility] [address] [place] [phone] * HEPATITIS C ANTIBODY RFLX (12/05/2019 8:41 AM EST) HEPATITIS C ANTIBODY NONREACTIVE NONREACTIVE [facility] Comment: Antibodies to HCV not detected; does not exclude early acute HCV infection. 12/05/2019 8:41 AM EST Scout Provider HISTORICAL/NON ORDERABLE LABS Final Result [facility] [address] from Last 3 Months or Most Recently Relevant to Health Maintenance Insurance MEDICARE [facility] STANDARD DENTAL-[facility] MEDICAID STAND ADULT Care Teams Airplane Pilot Commercial Relationship Specialty Start Date End Date Colin Ellsworth MD [address] [place] [phone] PCP - General Internal Medicine 02/12/20
--- OUTSIDE RECORDS SUMMARY | 2025-07-04 18:16 | XMS_ITS | Encounter Summary ---
Author Organization [employer] Address [address] [place] [address] Care Team Providers Care Proof Technician Name Role Phone Colin Ellsworth MD Primary Care Prov ider Encounter Details Date Type Department Care Team (Late st Contact Info) Description 11/01/2024 Telephone [facility] MED[facility]INE [address] [place] [address] Colin Ellsworth MD [address] [place], [place] [phone] Social History Tobacco Use Types Packs/Day Years [...] AM EDT documented as of this encounter Plan of Treatment Not on file documented as of this encounter Visit Diagnoses Not on filedocumented in this encounter Additional Health Concerns Assessment Noted Time PHQ-9 Depression Total Score: 17 024 11:41 AM EDT documented as of this encounter Care Teams Proof Technician Relationship Specialty Start Date End Date Colin Ellsworth MD [address] [place] [address] PCP - General Internal Medicine 02/12/20 documented as of this encounter
--- OUTSIDE RECORDS SUMMARY | 2025-07-04 18:16 | XMS_ITS | Encounter Summary ---
Author Organization [employer] Address [address] [facility] [place] [address] Care Team Providers Care Preschool Teacher Aide Name Role Phone Colin Ellsworth MD Primary Care Prov ider Encounter Details Date Type Department Care Team (Latest Contact Info) Description 07/04/2025 Travel Social History Tobacco Use Types Packs/Day Years [...] documented as of this encounter Care Teams Preschool Teacher Aide Relationship Specialty Start Date End Date Colin Ellsworth MD [address] [place] [address] PCP - General Internal Medicine 02/12/20 documented as of this encounter
--- OUTSIDE RECORDS SUMMARY | 2025-07-04 18:16 | XMS_ITS | Encounter Summary ---
Author Organization [employer] Address [address] [facility] 7t [place] [address] Care Team Providers Care Specialty Department Supervisor Name Role Phone Colin Ellsworth MD Primary Care Prov ider Encounter Details Date Type Department Care Team (Late st Contact Info) Description 10/12/2022 Orders Only [facility] MED[facility]INE [address] [place], [place] [phone] Colin Ellsworth MD [address] [place], [place] [phone] Primary hypertension (Primary Dx); Mixed hyperlipidemia Social History Tobacco Use Types Packs/Day Years Used Date Smoking Tobacco: Never Assessed Sex and Gender Information Value Date Recorded Sex Assigned at Male 08/09/2022 10:29 AM EDT Legal Sex Male 10:29 AM EDT Gender Identity Male 08/09/2022 10:29 AM EDT Sexual Orientation Straight 08/09/2022 10 :29 AM EDT documented as of this encounter Plan of Treatment Scheduled Orders Name Type Priority Associated Diagnoses Orde r Schedule Basic Metabolic Panel Lab Routine Primary hypertension Expected: 10/12/2022 (Approximate), Expires: 10/12/2023 documented as of this encounter Visit Diagnoses Diagnosis Primary hypertension- Primary Unspecified essential hypertension Mixed hyperlipidemia documented in this encounter Additional Health Concerns Assessment Noted Time PHQ-9 Depression Total Score: 0 10/08/20 22 8:48 AM EST documented as of this encounter Care Teams Specialty Department Supervisor Relationship Specialty Start Date End Date Colin Ellsworth MD [address] [place], [place] [phone] PCP - General Internal Medicine 02/12/20 documented as of this encounter
--- OUTSIDE RECORDS SUMMARY | 2025-07-04 18:17 | XMS_ITS | Encounter Summary ---
Author Organization [employer] Address [address] [facility] 7t [place] [address] Care Team Providers Care Extension Service Specialist Name Role Phone Colin Ellsworth MD Primary Care Prov ider Reason for Visit * Reason Onset Date Comments chart prep 07/03/2025 Encounter Details Date Type Department Care Team ([facility] Contact Info) Description 07/03/2025 Telephone [facility] PEDS [address] [place] [address] Colin Ellsworth MD [address] [place] [address] chart prep Social History Tobacco Use Types Packs/Day Years [...] AM EDT documented as of this encounter Miscellaneous Notes * Telephone Encounter - Porsha Baldwin [place] - 07/03/2025 3:49 PM EDT Chart Prep Labs: not done Images: not applicable Referrals: not applicable Vaccines due: Covid and Flu Screenings: colonoscopy Overdue care gaps: SBIRT, SDOH, and PHQ-9 documented in this encounter Plan of Treatment Not on file documented as of this encounter Visit Diagnoses Not on filedocumented in this encounter Additional Health Concerns Assessment Noted Time PHQ-9 Depression Total Score: 17 024 11:41 AM EDT documented as of this encounter Care Teams Extension Service Specialist Relationship Specialty Start Date End Date Colin Ellsworth MD [address] [place] [address] [place] [address] PCP - General Internal Medicine 02/12/20 documented as of this encounter
--- OUTSIDE RECORDS SUMMARY | 2025-07-04 18:17 | XMS_ITS | Encounter Summary ---
Author Organization [employer] Address [address] [facility] [address] [place] [address] Care Team Providers Care Space Control Supervisor Name Role Phone Colin Ellsworth MD Primary Care Prov ider Encounter Details Date Type Department Care Team (Late st Contact Info) Description 10/19/2023 Abstract [facility] [address] [place] [address] Flor Christianson DDS Social History Tobacco Use Types Packs/Day Years Used Date Smoking Tobacco: Never Passive Smoke Exposure: Never Smokeless Tobacco: Never Alcohol Use Standard Drinks/Week Comments Never 0 (1 standard drink = 0.6 oz pur e alcohol) Depression Answer Date Recorded Patient Health Questionnaire-9 Score 0 01/14/2023 Housing Stability Answer Date Recorded What is your housing situation today? I have pam jaimes 08/20/[address] you li ve. Do you have problems with any of the following? None of the above 08/20/2023 Food Insecurity Answer Date Recorded Within the past 12 months, y ou worried that your food would run out before you got money to buy more: Never True 08/20/2023 Within the past 12 months,th e food you bought just didn't last and you didn't have enough money to get more: Never True 08/2023 Transportation Answer Date Recorded In the past 12 months, has l ack of transportation kept you from medical appts, meetings, work or from getting things needed for daily living? No 08/20/2023 Utilities Answer Date Recorded In the past 12 months, has t he electric, gas, oil or water company threatened to shut off services in your home? No 08/20/2023 Depression Answer Date Recorded Patient Health Questionnaire-2 Score 0 01/14/2023 Sex and Gender Information Value Date Recorded [...] Noted Time PHQ-9 Depression Total Score: 0 01/15/20 23 8:57 AM EDT documented as of this encounter Care Teams Space Control Supervisor Relationship Specialty Start Date End Date Colin Ellsworth MD [address] [place] [phone] PCP - General Internal Medicine 02/12/20 documented as of this encounter
--- OUTSIDE RECORDS SUMMARY | 2025-07-04 18:17 | XMS_ITS | Encounter Summary ---
Author Organization [employer] Address [address] [place] [address] Care Team Providers Care Inspector Metal Can Name Role Phone Colin Ellsworth MD Primary Care Prov ider Encounter Details Date Type Department Care Team ([facility] st Contact Info) Description 07/03/2025 Telephone [facility] [address] [place], [place] [phone] Colin Ellsworth MD [address] [place] [address] Social History Tobacco Use Types Packs/Day Years [...] documented as of this encounter Care Teams Inspector Metal Can Relationship Specialty Start Date End Date Colin Ellsworth MD [address] [place] [id number] PCP - General Internal Medicine 02/12/20 documented as of this encounter
[2025-07-05 12:09] LABS: Free Prostate Spec Ag 1.0 ng/mL; Percent Free Prostate Spec Ag 19 % (calc) (>25)
== END 2025-07-04 13:45 | disposition home or self-care (01) ==
LOC: HO.CHCLDS 13:44
PROVIDERS: Visit Provider Internal Medicine
DX: I10 Essential (primary) hypertension (principal); Z12.5 Encounter for screening for malignant neoplasm of prostate
CPT/HCPCS: 36415; 80053; 80061; 84153; 84154; 84443; 85025